=== PATIENT | male | born 1980 | race Caucasian/White ===

== ENCOUNTER 2018-04-04 12:56 | Observation (INO) | payer OTHER ==
[~2018-04-04] VITALS: Ht 182.9 cm; Wt 159.3 kg
[2018-04-04 13:34] LABS: HEMATOCRIT 42.5 % (38.0-50.0); HEMOGLOBIN 14.5 G/DL (12.5-16.6); MCH 29.4 PG (29.0-34.0); MCHC 34.1 G/DL (30.0-36.0); MCV 86.2 FL (86-99); PLATELET COUNT 209 K/uL (156-360); RBC DIS.WIDTH-CV 13.5 % (11.8-14.6); RBC DIS.WIDTH-SD 42.1 % (39-53); RED BLOOD COUNT 4.93 M/uL (4.00-5.50); WHITE BLOOD COUNT 6.4 K/uL (4.1-10.2)
[2018-04-04 13:46] LABS: CHLORIDE 106 mEq/L (99-109); POTASSIUM 3.5 mEq/L (3.7-5.4); SODIUM 140 mEq/L (136-147)
[2018-04-04 13:48] LABS: GLUCOSE 264 mg/dL (70-99)
[2018-04-04 13:51] LABS: CREATININE 0.9 mg/dL (0.6-1.3); GFR ESTIMATE (CALCULATED) > 59 mL/min/ (58.99-99999)
[2018-04-04 13:52] LABS: UREA NITROGEN (BUN) 9 mg/dL (9-23)
[2018-04-04] MEDS ORDERED: PERCOCET 5/31 TABLET PO (14:26)
[2018-04-04] MEDS ORDERED: DOXYCYCLINE HY100 MG PO (14:26)
[2018-04-04] MEDS ORDERED: METOPROLOL SUC100 MG PO (15:28)
[2018-04-04] MEDS ORDERED: AMLODIPINE BESY10 MG PO (15:30)
[2018-04-04] MEDS ORDERED: LOSARTAN POTAS100 MG PO (15:30)
[2018-04-04] MEDS ORDERED: MONTELUKAST SOD10 MG PO (15:32)
[2018-04-04] MEDS ORDERED: COLACE100 MG PO (17:15)
[2018-04-04] MEDS ORDERED: ONDANSETRON HCL8 MG PO (17:15)
[2018-04-04] MEDS ORDERED: DILAUDID4 MG PO (17:15)
[2018-04-04 18:28] VITALS: BP 134/81
[2018-04-04 19:16] VITALS: BP 129/73
[2018-04-04 19:26] VITALS: BP 129/73
== END 2018-04-04 21:22 | disposition home or self-care (01) ==
LOC: EME 12:56 → EDOF 15:28 → ENRESERV 15:30 → 2EAST 18:12
PROVIDERS: Emergency Medicine
DX: S71.112A Laceration without foreign body, left thigh, initial encounter (principal); L76.32 Postprocedural hematoma of skin and subcutaneous tissue following other procedure; E66.01 Morbid (severe) obesity due to excess calories; I10 Essential (primary) hypertension; R73.03 Prediabetes; W27.0XXA Contact with workbench tool, initial encounter; Y93.H2 Activity, gardening and landscaping; Z23 Encounter for immunization
CPT/HCPCS: 80048; 85027; 99281; 99285; G0378; J0330; J0690; J1170; J2250; J3010; J7120; S0020